=== PATIENT | female | born 1960 | race Caucasian/White ===

== ENCOUNTER → 2016-11-16 | Outpatient (CLI) | payer OTHER ==
[~2016-11-16] MED LIST: ALTOPREV40 MG PO; ASPIRIN EC81 M1 PO; ASPIRIN81 MG; ATACAND4 MG; ATACAND4 MG PO; B-121000 MC1; BUPROPION HCL150 M1 PO; CALCITRIOL0.5 MCG PO; CARAFATE1 GM PO; CIPRO PO; CYANOCOBALAM1000 MCG PO; FERREX 150 FOR1 EACH PO; FLONASE 0.05% N16 G1; FLONASE 0.05% N16 GM; FLONASE ALLERG9.9 ML; HEARTBURN RELIE75 M2; LEVOXYL125 MCG PO; LIDODERM30 EA TOP; LO-DOSE ASPIRIN81 M1 PO; LOVASTATIN20 MG PO; MEVACOR PO; PANTOPRAZOLE SO40 MG PO; PATIENT'S PHARMACY; PHENADOZ12.5 MG PR; PROTONIX PO; REGLAN10 MG PO; SOD BICARBONATE PO; SYNTHROID112 MCG PO; SYNTHROID125 PO; TAGAMET PO; VITAMIN D31000 UNI1; VITAMIN D31000 UNIT PO; WELLBUTRIN SR PO; WELLBUTRIN100 MG PO; ZANTAC150 MG PO; ZOFRAN PO; ZOLOFT PO; ZOLOFT100 MG PO; ZYRTEC; ZYRTEC10 M1 PO; ZYRTEC10 M2 PO
[2016-11-16 12:46] LABS: HEMATOCRIT 39.6 % (35.0-45.0); HEMOGLOBIN 13.2 gm/dL (12.0-16.0); MEAN CELL VOLUME 89.6 FL (83-96); MEAN CORPUSCULAR HEMOGLOBIN 29.9 PG (28-34); MEAN CORPUSCULAR HGB CONC 33.4 g/dL (30-36); MEAN PLATELET VOLUME 8.4 FL (6.5-11.5); RED BLOOD COUNT 4.42 X10e (3.90-5.30); RED CELL DISTRIBUTION WIDTH 13.7 % (11.0-15.5); WHITE BLOOD COUNT 6.4 X10e3 (4.0-10.5)
[2016-11-16 12:59] LABS: BUN/CREATININE RATIO 13.33; CALCIUM SERUM 8.4 mg/dL (8.4-10.2); CREATININE SERUM 1.8 mg/dL (0.6-1.4); GLOM FILT RATE Estimated 30.5 mL/min (>60); PHOSPHOROUS 3.5 mg/dL (2.5-4.6); POTASSIUM 4.3 mmol/L (3.5-5.1)
== END | disposition home or self-care (01) ==
LOC: SLAB 12:25
PROVIDERS: Internal Medicine Nephrology
DX: N18.3 Chronic kidney disease, stage 3 (moderate) (principal); N25.81 Secondary hyperparathyroidism of renal origin; E55.9 Vitamin D deficiency, unspecified
CPT/HCPCS: 36415; 80048; 82310; 82728; 83540; 83550; 83970; 84100; 85027

== ENCOUNTER 2017-01-08 12:38 | Emergency (ER) | payer OTHER ==
[~2017-01-08] VITALS: Ht 170.2 cm; Wt 77.1 kg
--- NOTE | ~2017-01-08 | CT4 ---
[facility] A Service of [facility] & [facility] RADIOLOGY TEXT RESULTS PATIENT: ELZA BENITO LOCATION: SED : 56 UNIT #: [id number] AGE: [address]: Adeline Graham MD SEX: F ORDER DR: [id number] [address] [address] [id number] MR#: [id number] Acc #: [id number] NAME: ELZA BENITO : 1960 SEX: F STUDY DATE/TIME: 01/08/2017 14:10 UNIT: SED ROOM: STUDY DESCRIPTION: CT Abd and Pelv Wo Cont Attending Physician: Adeline Graham M.D. Ordering Physician: Adeline Graham M.D. Primary Care Physician: No Primary Care Physician MEDICAL IMAGING REPORT This report is preliminary unless electronic signature is present. EXAM CT abdomen and pelvis without IV contrast COMPARISON November 28, [address] of the chest dated November 11, 2015 and September 13, 2014. INDICATION 56-year-old female with nausea for [address] imaging of the abdomen and pelvis was performed without IV contrast. Coronal and sagittal reformats were constructed. Lack of IV contrast limits evaluation of adenopathy, vasculature and viscera. This CT exam was performed with one or more of the following radiation dose reduction techniques: automatic control, adjustment of mA and/or kV according to patient size, and iterative reconstruction. As compared to November 28, 2015 there are new healing fractures of the left fifth and sixth anterior ribs. There is multilevel degenerative facet disease of the lumbar spine, which is moderate in the mid to lower aspect. No acute fractures or suspicious osseous lesions. Dependent subsegmental atelectasis in both lower lobes. There are 2 low-density lesions in the liver and likely a third low density lesion and possibly a fourth low-density lesion which are too small to characterize. Otherwise there are simple cysts seen throughout the liver, largest of which measures up to 3.7 cm. Two of the subcentimeter lesions appear stable from comparison of November 2015 and two of them may be new. There is grossly stable polycystic appearance of both kidneys. There are some hyperdense lesions in both kidneys most in keeping with hemorrhagic cysts. There is a thin mural calcification associated with a cyst in the superior pole of the left kidney, which is stable. [facility] A Service of [facility] & [facility] RADIOLOGY TEXT RESULTS PATIENT: ELZA BENITO LOCATION: [facility] : 56 UNIT #: [id number] AGE: [address]: Adeline Graham MD SEX: F ORDER DR: There appears to be some vague calcification inferior pole of the left kidney as well, not well characterized due to lack of IV contrast. This may involve the wall of another simple cyst which is favored. Adrenal glands are unremarkable. There are calcified granulomas within the liver and spleen. No evidence of acute pancreatitis. No hydronephrosis or hydroureter. No ureteral calculi. Urinary bladder is unremarkable. No adnexal masses. Trace amount of free fluid in the right pelvis of uncertain etiology, possibly physiologic. There is a moderate diffuse colonic stool burden with internal hyperdense material. The appendix is not seen in keeping with given history of appendectomy. There has been prior cholecystectomy. There is diffuse calcification of the abdominal aorta extending to the iliac arteries in the left common femoral artery as well as the right common femoral artery. There is calcification near the origin of the celiac artery. No evidence of bowel obstruction or perforation. There is marked distension of the stomach with internal debris. No visible adenopathy. IMPRESSION 1. No acute abnormality of the abdomen, pelvis or imaged lower chest. Since November 2015 there are healing fractures of the fifth and sixth left anterior ribs. 2. Findings consistent with polycystic kidney disease. There are 2 Bosniak type 2 cysts in the left kidney with suggestion of stable thin peripheral rim calcification. There are also hyperdense renal lesions, most in keeping with hemorrhagic cysts. Consider continued imaging followup with IV contrast if the patient can receive iodinated contrast. Otherwise MRI with IV contrast using DOTAREM could be performed which is considered safe in renal failure. One could also consider follow up with ultrasound. 3. Multiple hepatic cysts. There are a few low density lesions which are too small to characterize in the liver and some which may be new from November 28, 2015. 4. Marked distension of the stomach with internal ingested debris. 5. Trace free fluid in the pelvis of uncertain etiology, unexpected in a postmenopausal patient. 6. Arterial calcifications in the abdomen and pelvis with calcification involving the origin of the celiac artery. 7. Prior appendectomy and hysterectomy. Dictated by... Chris Navarro M.D. THIS IS AN ELECTRONICALLY VERIFIED REPORT Chris Navarro M.D. at 01/16/2017 6:20 PM ARTURO/rnr [facility]. [facility] A Service of [facility] RADIOLOGY TEXT RESULTS PATIENT: ELZA BENITO LOCATION: SED : 56 UNIT #: [id number] AGE: [address]: Adeline Graham MD SEX: F ORDER DR: TD: 01/09/2017 02:04 JOB #: [id number] MEDICAL IMAGING REPORT Page 1 of 1
[~2017-01-08 12:38] MED LIST changes: -ALTOPREV40 MG PO; -ASPIRIN EC81 M1 PO; -ATACAND4 MG PO; -CALCITRIOL0.5 MCG PO; -CARAFATE1 GM PO; -CYANOCOBALAM1000 MCG PO; -FERREX 150 FOR1 EACH PO; -FLONASE 0.05% N16 G1; -FLONASE 0.05% N16 GM; -FLONASE ALLERG9.9 ML; -LEVOXYL125 MCG PO; -LO-DOSE ASPIRIN81 M1 PO; -MEVACOR PO; -PANTOPRAZOLE SO40 MG PO; -PATIENT'S PHARMACY; -PHENADOZ12.5 MG PR; -PROTONIX PO; -REGLAN10 MG PO; -SOD BICARBONATE PO; -SYNTHROID125 PO; -TAGAMET PO; -VITAMIN D31000 UNIT PO; -WELLBUTRIN100 MG PO; -ZANTAC150 MG PO; -ZOFRAN PO; -ZOLOFT PO; -ZYRTEC; -ZYRTEC10 M1 PO; -ZYRTEC10 M2 PO
[2017-01-08] MEDS ORDERED: ZYRTEC (12:49)
[2017-01-08] MEDS ORDERED: FLONASE 0.05% N16 G1 (12:49)
[2017-01-08 13:28] LABS: BASOPHIL# 0.1 X10e3 (0-0.3); BASOPHIL% 0.7 % (0-2.5); EOSINOPHIL# 0.7 X10e3 (0-0.7); EOSINOPHIL% 6.7 % (0.0-7.0); HEMATOCRIT 39.1 % (35.0-45.0); HEMOGLOBIN 13.3 gm/dL (12.0-16.0); LYMPHOCYTE# 1.5 X10e3 (1.0-3.5); LYMPHOCYTE% 14.6 % (17.0-45.0); MEAN CELL VOLUME 88.4 FL (83-96); MEAN CORPUSCULAR HEMOGLOBIN 30.2 PG (28-34); MEAN CORPUSCULAR HGB CONC 34.1 g/dL (30-36); MEAN PLATELET VOLUME 8.7 FL (6.5-11.5); MONOCYTE# 0.5 X10e3 (0-1.0); MONOCYTE% 5.1 % (3.0-12.0); NEUTROPHIL# 7.7 X10e3 (1.5-7.1); NEUTROPHIL% 72.9 % (40-75); PLATELET COUNT 215 X10e3 (140-420); RED BLOOD COUNT 4.42 X10e (3.90-5.30); RED CELL DISTRIBUTION WIDTH 13.4 % (11.0-15.5); WHITE BLOOD COUNT 10.5 X10e3 (4.0-10.5)
[2017-01-08 13:29] LABS: DIFF IND NO
[2017-01-08 13:46] LABS: ALBUMIN SERUM 3.5 g/dL (3.5-5.0); BILIRUBIN, DIRECT 0.1 mg/dL (0.0-0.2); BILIRUBIN,TOTAL 0.1 mg/dL (0.2-2.0); CALCIUM SERUM 8.4 mg/dL (8.4-10.2); CREATININE SERUM 1.5 mg/dL (0.6-1.4); POTASSIUM 3.8 mmol/L (3.5-5.1); PROTEIN TOTAL SERUM 6.5 g/dL (6.0-8.3)
[2017-01-13] MEDS ORDERED: ATACAND4 MG PO (13:11)
[2017-01-13] MEDS ORDERED: LO-DOSE ASPIRIN81 M1 PO (13:11)
[2017-01-13] MEDS ORDERED: WELLBUTRIN100 MG PO (13:12)
[2017-01-13] MEDS ORDERED: FLONASE 0.05% N16 GM (13:12)
[2017-01-13] MEDS ORDERED: MEVACOR PO (13:13)
[2017-01-13] MEDS ORDERED: PANTOPRAZOLE SO40 MG PO (13:13)
[2017-01-13] MEDS ORDERED: ZOLOFT PO (13:13)
[2017-01-13] MEDS ORDERED: LEVOXYL125 MCG PO (13:13)
[2017-01-13] MEDS ORDERED: ZYRTEC10 M1 PO (13:14)
[2017-01-13] MEDS ORDERED: CARAFATE1 GM PO (13:15)
[2017-01-13] MEDS ORDERED: TAGAMET PO (13:15)
[2017-01-13] MEDS ORDERED: ZANTAC150 MG PO (13:16)
== END 2017-01-08 15:19 | disposition home or self-care (01) ==
LOC: SED 12:38
PROVIDERS: Student in an Organized Health Care Education/Training Program
DX: K21.9 Gastro-esophageal reflux disease without esophagitis (principal); E11.9 Type 2 diabetes mellitus without complications; I10 Essential (primary) hypertension; F17.200 Nicotine dependence, unspecified, uncomplicated; Z88.2 Allergy status to sulfonamides; Z88.0 Allergy status to penicillin; Z88.8 Allergy status to other drugs, medicaments and biological substances; Z79.899 Other long term (current) drug therapy
CPT/HCPCS: 36415; 74176; 80048; 80076; 82150; 83690; 85025; 99284

== ENCOUNTER → 2017-01-14 | Day surgery (SDC) | payer OTHER ==
[~2017-01-14] MED LIST changes: +ALTOPREV40 MG PO; +ASPIRIN EC81 M1 PO; +ATACAND4 MG PO; +CALCITRIOL0.5 MCG PO; +CARAFATE1 GM PO; +CYANOCOBALAM1000 MCG PO; +FERREX 150 FOR1 EACH PO; +FLONASE 0.05% N16 G1; +FLONASE 0.05% N16 GM; +FLONASE ALLERG9.9 ML; +LEVOXYL125 MCG PO; +LO-DOSE ASPIRIN81 M1 PO; +MEVACOR PO; +PANTOPRAZOLE SO40 MG PO; +PATIENT'S PHARMACY; +PHENADOZ12.5 MG PR; +PROTONIX PO; +REGLAN10 MG PO; +SOD BICARBONATE PO; +SYNTHROID125 PO; +TAGAMET PO; +VITAMIN D31000 UNIT PO; +WELLBUTRIN100 MG PO; +ZANTAC150 MG PO; +ZOFRAN PO; +ZOLOFT PO; +ZYRTEC; +ZYRTEC10 M1 PO; +ZYRTEC10 M2 PO
--- NOTE | ~2017-01-14 | OR ---
Unit #: [id number] #: [id number] Patient: ELZA BENITO [id number] [address] [address] [id number] O MR#: [id number] NAME: ELZA BENITO ROOM: Date of Procedure: 01/14/2017 Admission Date: 01/14/2017 Surgeon: Jose Guadalupe Hernandez M.D. : 1960 Attending Physician: Jose Guadalupe Hernandez M.D. Referring Physician: Jose Guadalupe Hernandez M.D. Primary Care Physician: Monica Briones M.D. OPERATIVE REPORT JOB NOTE: CC: PRIMARY CARE PHYSICIAN, AND DR. WILLS. PROCEDURE PERFORMED Esophagogastroduodenoscopy with biopsy. INDICATIONS FOR PROCEDURE The patient with persistent nausea and vomiting, also with gastroesophageal reflux disease symptoms, undergoing evaluation with upper endoscopy. MEDICATIONS Monitored anesthesia. POSTOPERATIVE FINDINGS 1. Large antral mass with superficial ulceration in a large area. Multiple biopsies were taken from the edges of the ulceration. 2. Pyloric canal was deformed and obstructed, because of the mass effect from the tumor; however, duodenal bulb and distal duodenum were normal. 3. Small hiatal hernia. PLAN We will follow up on the pathology report. Further recommendations to follow. DESCRIPTION OF PROCEDURE The patient was explained of the procedure, risks, and benefits along with risks and benefits of anesthesia. She was brought to the endoscopy room. Propofol anesthesia was given. Bite block was placed. The scope was passed down the mouth into esophagus, stomach, duodenum, and distal duodenum. Findings as described. Biopsies were taken. Gently, I pulled the scope out of the patient's mouth. She tolerated it well. Dictated by... Misa Casey/juan m TD: 01/20/2017 11:49 JOB #: [id number] Unit #: [id number] #: [id number] Patient: ELZA BENITO OPERATIVE REPORT Page 1 of 1 X Jose Guadalupe Hernandez MD X PROCEDURE OPERATIVE NOTE
== END | disposition home or self-care (01) ==
LOC: COPS 10:17
DX: K29.50 Unspecified chronic gastritis without bleeding (principal); K44.9 Diaphragmatic hernia without obstruction or gangrene; M81.0 Age-related osteoporosis without current pathological fracture; E03.9 Hypothyroidism, unspecified; E11.9 Type 2 diabetes mellitus without complications; J44.9 Chronic obstructive pulmonary disease, unspecified; I10 Essential (primary) hypertension; F17.210 Nicotine dependence, cigarettes, uncomplicated; Z88.0 Allergy status to penicillin; Z88.2 Allergy status to sulfonamides; Z88.5 Allergy status to narcotic agent; Z88.8 Allergy status to other drugs, medicaments and biological substances; Z79.82 Long term (current) use of aspirin; Z79.899 Other long term (current) drug therapy; Z90.49 Acquired absence of other specified parts of digestive tract; Z98.890 Other specified postprocedural states
CPT/HCPCS: 82947; 88305; 88312; 88313; J2250

== ENCOUNTER 2017-01-20 11:27 | Inpatient (IN) | payer OTHER ==
[~2017-01-20] VITALS: Ht 170.2 cm; Wt 76.7 kg
--- NOTE | ~2017-01-20 | HP ---
Unit #: [id number] #: [id number] Patient: ELZA BENITO [id number] [address] [place], [place] [address] [id number] I MR#: [id number] NAME: ELZA BENITO ROOM: 477 Age: 56 Sex: F Admission Date: 01/20/2017 : 1960 Attending Physician: Jose Guadalupe Hernandez M.D. Primary Care Physician: Monica Briones M.D. HISTORY AND PHYSICAL REASON FOR ADMISSION History of nausea and vomiting, unable to tolerate anything by mouth, gastric mass. HISTORY OF PRESENTING ILLNESS Miss Benito is a 56-year-old, thin, pleasant female. She was seen here by me within the last week where an EGD has shown a large gastric antral mass with ulceration which was causing deformity and complete obstruction of gastric outlet. The patient was sent home on clear liquids however could not tolerate any liquids at all and was brought in for persistent nausea/vomiting. Biopsies from the original mass taken were negative. She needs further tissue diagnosis also. She has lost about 20 pounds. She has no hematemesis. She has no change in the bowel movements. PAST MEDICAL HISTORY Past medical history significant for hyperlipidemia, polycystic kidney disease, history of anxiety and depression. She is status post cholecystectomy, C-sections. SOCIAL HISTORY Smoker, denies alcohol, denies any drug abuse. REVIEW OF SYSTEMS Complete 10-point review of systems was done which was unremarkable other than as mentioned above. HOME MEDICATIONS Medications at home included aspirin, Wellbutrin, Flonase, Levoxyl, Mevacor, pantoprazole, Zoloft, Zyrtec, Seroquel and Zantac. ALLERGIES Allergies to Dilaudid, Lortab and sulfa. PHYSICAL EXAMINATION VITAL SIGNS: Are stable. Temperature 97.9. Pulse is 93. Respirations 18. Blood pressure 123/51. HEENT: Pupils equal and reactive. Sclerae anicteric. Oral mucosa moist. NECK: No JVD. No lymphadenopathy. CHEST: Clear to auscultation bilaterally. CARDIOVASCULAR SYSTEM: Regular rate/rhythm. No murmurs. ABDOMEN: Soft, nontender, nondistended. No organomegaly or ascites. EXTREMITIES: Without clubbing, cyanosis or edema. NEUROLOGICALLY: Grossly intact. No focal sensory or motor deficits. Unit #: [id number] #: [id number] Patient: ELAZ BENITO Cranial nerves are intact. SKIN: Is warm and dry. DIAGNOSTIC STUDIES LABS: At admission she has normal BUN and creatinine, sodium was 133, potassium of 3.0. LFTs are normal. saturation of 13, iron level of 30, and ferritin of 67, B12 was over 1500. CBC with a normal hemoglobin and hematocrit, platelet count ASSESSMENT AND PLAN 1. Patient with gastric outlet obstruction and persistent nausea and vomiting, large gastric mass that appears to be neoplastic however biopsies were negative. Will continue with IV fluids as well as nutrition. Will continue with PPI therapy. She will need a repeat upper endoscopy for temporary placement of nasojejunal feeding tube as well as for repeat biopsies. If the biopsies are negative again and deep repeat biopsies will be considered at a later date. 2. DVT prophylaxis with Lovenox. 3. History of diabetes mellitus. Will watch Accu-Cheks q.a.c. and q.h.s. Dictated by Jose Guadalupe Hernandez M.D. LYNNE/melanie TD: 01/21/2017 21:46 JOB #: [id number] HISTORY AND PHYSICAL Page 1 of 1 X Jose Guadalupe Hernandez MD X HISTORY AND PHYSICAL
--- NOTE | ~2017-01-20 | CO ---
Unit #: [id number] #: [id number] Patient: ELZA BENITO [id number] [address] [place], [place] [address] [id number] I MR#: [id number] NAME: ELZA BENITO ROOM: 47 Age: 56 Sex: F Admission Date: 01/20/2017 : 1960 Attending Physician: Jose Guadalupe Hernandez M.D. Primary Care Physician: Monica Briones M.D. Consultation Date: 01/23/2017 CONSULTATION REPORT REASON FOR CONSULTATION Medical management. HISTORY OF PRESENT ILLNESS A 56-year-old female with multiple medical problems, was admitted by Dr. Hernandez because of intractable nausea and vomiting. The patient had EGD done, which showed a large gastric antral mass with ulceration which was causing deformity and complete obstruction of the gastric outlet. After EGD, the patient was sent home on clear liquid but she could not tolerate, was admitted and has NG tube in at this time. She has been examined and she was seen in room 477. She seems to be stable, lying down comfortably in the bed, in no respiratory distress. She does not have any major complaint at this time. She does not complain of chest pain. She does have some abdominal pain on the left upper quadrant. No vomiting since she has had NG tube in place. No complain of constipation or diarrhea. No complain of syncopal episode. PAST MEDICAL HISTORY 1. Hypertension. 2. Hyperlipidemia. 3. History of polycystic kidney disease. 4. History of diabetes mellitus, type 2, diet controlled. 5. Hypothyroidism. 6. History of depression/anxiety. 7. History of squamous cell skin cancer. 8. History of tobacco abuse. PAST SURGICAL HISTORY 1. Cholecystectomy. 2. Appendectomy. 3. Multiple foot surgeries. SOCIAL HISTORY The patient lives at home with her friend. She has a history of smoking. She started smoking at the age of 12, smokes half to one pack per day. No history of alcohol abuse or drug abuse. ALLERGIES The patient is allergic to Dilaudid, Lortab, and sulfa. MEDICATIONS Medications at this time; Lovenox 40 mg subcu daily, Protonix IV 40 daily, Flonase nasal spray b.i.d., Wellbutrin 100 mg b.i.d., Zoloft 100 mg daily, aspirin 81 mg daily, Synthroid 125 mcg daily, IV fluids D5 normal saline Unit #: [id number] #: [id number] Patient: ELZA BENITO at 75 mL an hour, IV morphine as needed, and potassium protocol. REVIEW OF SYSTEMS No history of fever, chills, or rigors. No history of significant weight loss. She does have nausea and vomiting. No history of syncopal episode. The patient has had squamous cell carcinoma of the skin. She has history of depression, but under control. Rest is as per history of presenting illness. PHYSICAL EXAMINATION VITAL SIGNS: Stable. Blood pressure 116/54, respiratory rate 18, pulse is 65, temperature 97.7, oxygen saturation is 100%. HEAD: Head is normocephalic. Eye movements are normal. No conjunctival congestion. NECK: Supple. Trachea is in midline. No carotid bruit. CHEST: Fair air entry. Bilateral few wheezing heard. CVS: S1 and S2 positive. Regular rhythm. ABDOMEN: Soft. Mild tenderness in the left upper quadrant. EXTREMITIES: Negative edema. Pulses are palpable. BUTTER MELTER: The patient is awake, alert, oriented x3. No focal neurological deficit. DIAGNOSTIC STUDIES LABORATORY RESULTS: Today potassium 3.9, sodium 137, BUN 11, creatinine 1.0. Liver enzymes are stable. Magnesium 2.0. WBC 5.2, hemoglobin 12.9, hematocrit 38.0, and platelet count of 170. B12 more than 1500 and ferritin 67. ASSESSMENT AND PLAN 1. Gastric outlet obstruction. 2. Persistent nausea and vomiting secondary to above. 3. Large gastric mass with biopsies which are negative so far. 4. History of diabetes mellitus, type 2. 5. Hypothyroidism. 6. Hypertension. 7. Hyperlipidemia. 8. History of polycystic kidney disease. 9. History of depression. 10. Tobacco abuse. 11. History of skin cancer. PLAN 1. Med rec has been reviewed at length. Continue IV Protonix 40 mg daily. Continue NG tube at this time and feedings will be started. The patient will need repeat esophagogastroduodenoscopy. Continue Accu-Chek a.c. and h.s. with insulin sliding scale. Home medications have been reviewed and seems to be stable at this time. Nicotine patch is being placed. 2. Tobacco cessation counseling has been done. The patient is on DVT prophylaxis. 3. Plan of care has been discussed with patient at length. Thank you, Dr. Hernandez, for this medical consult on a very pleasant female. We will continue to follow along with you. Dictated by.Massiel Buckner M.D. Unit #: [id number] #: [id number] Patient: ELZA BENITO SIMI/juan m TD: 01/23/2017 04:24 JOB #: [id number] CONSULTATION REPORT Page 1 of 1 X Vanessa Buckner MD X CONSULTATION REPORT
--- NOTE | ~2017-01-20 | CO ---
Unit #: [id number] #: [id number] Patient: ELZA BENITO [id number] [address] [place], [place] [address] [id number] I MR#: [id number] NAME: ELZA BENITO ROOM: 47 Age: 56 Sex: F Admission Date: 01/20/2017 : 1960 Attending Physician: Jose Guadalupe Hernandez M.D. Primary Care Physician: Monica Briones M.D. Consultation Date: 01/21/2017 CONSULTATION REPORT REASON FOR CONSULTATION Hypoglycemia. HISTORY OF PRESENT ILLNESS This is a 56-year-old female, who has recently been diagnosed with the stomach mass, who presented to the emergency room for not feeling well, intractable nausea, vomiting, unable to eat anything p.o., weight loss about 2 weeks duration. She has been having recurrent episodes of hypoglycemia. The patient does have a history of the type 2 diabetes mellitus, which is diet controlled in the past. She has not been on any oral hypoglycemic agents. She underwent EGD. She had Dobbhoff tube placement. She is started on tube feeds and IV fluids with dextrose. Her blood sugar has been stable at this time. PAST MEDICAL HISTORY Type 2 diabetes mellitus, hyperlipidemia, hypertension, chronic kidney disease, stomach mass, questionable gastric cancer. PAST SURGICAL HISTORY Appendectomy, cholecystectomy. ALLERGIES Reviewed. MEDICATIONS Current medications and home medications list reviewed. SOCIAL HISTORY Continues to smoke tobacco. REVIEW OF SYSTEMS 10-point review of systems completed, please see HPI. PHYSICAL EXAMINATION GENERAL: She looks comfortable, no acute distress. VITAL SIGNS: Temperature 98.4, pulse 62, respirations 16, and blood pressure 123/49. HEENT: EOMI. Pupils equally reactive to light. NECK: Supple. No thyromegaly noted. CHEST: Good air entry. CVS: Regular rhythm. No murmurs. ABDOMEN: Soft and nontender. Bowel sounds positive. EXTREMITIES: No edema. Unit #: [id number] #: [id number] Patient: ELZA BENITO NEUROLOGIC: Nonfocal. DIAGNOSTIC STUDIES LABORATORY RESULTS: Reviewed. ASSESSMENT 1. Hypoglycemia, recurrent most likely due to the poor p.o. intake due to the gastric mass and weight loss. 2. History of type 2 diabetes mellitus. PLAN We will continue IV fluids with the dextrose. Continue tube feeds. Continue monitoring blood sugars. Check serum cortisol level to rule out any underlying adrenal insufficiency. Thanks again for consultation. Dictated by... Misa Cherry/juan m TD: 01/21/2017 19:16 JOB #: [id number] CONSULTATION REPORT Page 1 of 1 X Ty Villalobos MD X CONSULTATION REPORT
--- NOTE | ~2017-01-20 | A ---
[facility] DATE: 01/21/17 Patient: ELZA DAVIES JIGNA Physician: ALEKSANDER Address: [address] Room/Bed: [address] [place] [address], Zip: [place] [address] Admit Date: 01/20/17 Date of : [birth year] Height: 5 7 Weight: 169 76.65 NUTRITIONAL ASSESSMENT: REASON: Enteral nutrition recommendation consult Admitting dx: Pt is a 56 y/o female admitted with GERD symptoms and N/V PMH: Pt is s/p EGD on 01/14/17. Anthropometrics: Ht:67" Wt:168# (76 kg) BMI:26.3 UBW:180# 7% weight loss since beginning of 2017. Labs: Na+:133, K+:3.0, Ca++:8.1, Alb:3.4, POC:50-128, Lip:67, GFR:45.2 Meds: Synthroid (JT), Aspirin, Phenergan, Protonix, Lovenox I/O & Bowel function: BM 01/18 Skin Integrity: Nothing noted. Estimated Nutrition Needs: 2600-3076 kcals (20-25 g/kg) 76-91 g protein (1.0-1.2 g/kg) Fluids consistent with kcal needs or per MD. Assessment: Chart reviewed, events noted. RD was consulted to provide enteral nutrition recommendations. Cross Country/Track And Field Coach was able to speak to the pt and family in room. Pt currently has EN support of Jevity 1.2 running @ 30 ml/hr. Of note, pt's tube feed was initiated just minutes prior to internal consultant entering room; no pump history is available. Pt reports her usual body weight to be ~180# prior to the beginning of this year, faulting poor appetite due to N/V and gastric issues for her weight loss. Of note, patient has an [place] tube in place. RD to follow-up with patient per protocol. Dx: Inadequate protein-energy intake r/t N/V, current clinical condition AEB need for enteral nutrition, 7% weight loss this year. Intervention: See RD recs below Monitoring, Evaluation and Goals: 1. Enteral nutrition to provide >80% estimated goal volume x 24 hours. 2. Prevent further unintended weight loss. 3. Labs WNL. (Na+, K+, Ca++, Alb, Lip, GFR) [facility] DATE: 01/21/17 Patient: ELZA DAVIES JIGNA Physician: ALEKSANDER Address: [address] Room/Bed: [address] [place] [address], Zip: [place] [address] Admit Date: 01/20/17 Date of : 56 Height: 5 7 Weight: 169 76.65 Recommendations: 1. Once medically feasible, advance diet per PHYSICIAN PRESIDENT as tolerated + regular. 2. Tube feeds held 2 hours before and 2 hours after administering Synthroid - rate is based on a 20 hour period If pt remains inappropriate for PO diet initiate enteral nutrition with Jevity 1.5 @ 20 ml/hr and advance by 10 ml q 4 hours until a goal rate of 60 ml/hr (x20 hours) is reached to provide 1200 ml, 1800 kcal, 77 g protein, and 912 ml free H2O. Once at goal rate add free water flushes of 220 ml q 6 hours and hold liquid IVF, or manage fluids per MD. If synthroid d/c'd initiate Jevity 1.5 @ 50 ml/hr (x24 hours) to provide 1200 ml, 1800 kcal, 77 g protein, and 912 ml free H2O. Once at goal rate add free water flushes of 220 ml q 6 hours and hold liquid IVF, or manage fluids per MD. 3. Continue to monitor blood glucose levels. Pt is a mild-moderate nutrition risk RD will follow Respectfully, Ivette Adan, Smutter Khris Dick, MS, RD, LD [facility] cc: client file
--- NOTE | ~2017-01-20 | OR ---
Unit #: [id number] #: [id number] Patient: ELZA BENITO [id number] [address] [place], [place] [address] [id number] Kimberlee MR#: [id number] NAME: ELZA BENITO ROOM: 477 Date of Procedure: 01/21/2017 Admission Date: 01/20/2017 Surgeon: Jose Guadalupe Hernandez M.D. : 1960 Attending Physician: Jose Guadalupe Hernandez M.D. Primary Care Physician: Monica Briones M.D. OPERATIVE REPORT PROCEDURE PERFORMED Esophagogastroduodenoscopy with biopsies and esophagogastroduodenoscopy with nasojejunal feeding tube placement. INDICATIONS FOR PROCEDURE A 56-year-old female with gastric antral mass causing gastric outlet obstruction, here fore repeat evaluations, biopsies as well as placement of nasojejunal feeding tube. MEDICATIONS Monitored anesthesia. POSTOPERATIVE FINDINGS 1. Large antral mass about 4 to 5 cm, ulceration. Multiple biopsies were taken from the ulcer edges as well as from the base of the ulceration. 2. Successful placement of nasojejunal feeding tube using nasoscope under fluoroscopic guidance. PLAN Will start feeding through the nasojejunal feeding tube. We will await biopsy results. DESCRIPTION OF PROCEDURE The patient was explained of the procedure risks and benefits along with risks and benefits of anesthesia. She was brought to the endoscopy room. Propofol anesthesia was given. Bite block was placed. The scope was passed down the mouth into esophagus, stomach, duodenum, and distal duodenum. Antral mass deforming the . Multiple biopsies taken from the base of the ulcer as well as edges. I then used nasojejunal scope, which was passed down the right nostril all the way to the descending duodenum. Guidewire was passed through it and placed in the naris under fluoroscopic guidance, we pulled the scope out. A nasojejunal feeding tube was then placed over the guidewire and secured in position on the nose. Placement was confirmed with fluoroscopy. She tolerated the procedure very well. No major complications were seen. Dictated by... Misa Casey/juan m Unit #: [id number] #: [id number] Patient: ELZA BENITO TD: 01/21/2017 16:58 JOB #: [id number] OPERATIVE REPORT Page 1 of 1 X Jose Guadalupe Hernandez MD PROCEDURE OPERATIVE NOTE
--- NOTE | ~2017-01-20 | CT57 ---
[facility] A Service of [facility] RADIOLOGY TEXT RESULTS PATIENT: ELZA BENITO LOCATION: [facility] [id number] : 56 UNIT #: [id number] AGE: [address]: Jose Guadalupe Hernandez MD SEX: F ORDER DR: [id number] [facility] [address] [place], [place] [address] [id number] I MR#: [id number] Acc #: [id number] NAME: ELZA BENITO : 1960 SEX: F STUDY DATE/TIME: 01/24/2017 17:45 UNIT: [facility] ROOM: [facility] STUDY DESCRIPTION: CT Chest Wo Cont Attending Physician: Jose Guadalupe Hernandez M.D. Ordering Physician: Henna Aguirre M.D. Primary Care Physician: Monica Briones M.D. MEDICAL IMAGING REPORT This report is preliminary unless electronic signature is present EXAM Chest CT 01/24 INDICATIONS Vomiting for 2 weeks with chest discomfort. History of adenocarcinoma of the stomach. Observation for malignant neoplasm. TECHNIQUE Axial noncontrast images were obtained through the chest. Multiplanar reformats were obtained. Comparison made with 11/11/2015. The CT exam was performed with one or more of the following radiation dose reduction techniques: automatic exposure control, adjustment of mA and/or kV according to patient size, and iterative reconstruction. FINDINGS There are a few small mediastinal nodes which are unchanged from prior and benign. No pathologic adenopathy is seen. No pericardial effusion. There are trace bilateral pleural effusions. Lung windows demonstrate emphysema. Minimal atelectasis noted left lower lobe. No acute infiltrates are seen, and there are no suspicious pulmonary nodules. Upper abdomen again shows polycystic kidney disease. There are multiple hepatic cysts. Redemonstrated is a soft tissue mass in the distal gastric body. This is compatible with the given history of adenocarcinoma. The tip of the feeding tube is not seen. The distal most portion is in the first portion of the duodenum. No suspicious osseous lesions are identified. IMPRESSION 1. No evidence of metastatic disease in the chest. 2. Emphysema with trace bilateral pleural effusions. 3. Mass in the distal gastric body compatible with given history of STS. [facility] A Service of [facility] RADIOLOGY TEXT RESULTS PATIENT: ELZA BENITO LOCATION: [facility] [id number] : 56 UNIT #: [id number] AGE: [address]: Jose Guadalupe Hernandez MD SEX: F ORDER DR: adenocarcinoma. Dictated by... Francis Williamson Jr., M.D. THIS IS AN ELECTRONICALLY VERIFIED REPORT Francis Williamson Jr., M.D. at 01/26/2017 2:08 PM FOUZIA/sharri TD: 01/25/2017 09:37 JOB #: [id number] MEDICAL IMAGING REPORT Page 1 of 1 COPY
--- NOTE | ~2017-01-20 | CO ---
Unit #: [id number] #: [id number] Patient: ELZA BENITO [id number] [address] [place], [place] [address] [id number] I MR#: [id number] NAME: ELZA BENITO ROOM: 477 Age: 56 Sex: F Admission Date: 01/20/2017 : 1960 Attending Physician: Jose Guadalupe Hernandez M.D. Primary Care Physician: Monica Briones M.D. CONSULTATION REPORT CHIEF COMPLAINT Gastric/esophageal cancer, weight loss, polycystic kidney disease, cyst in the liver. HISTORY OF PRESENT ILLNESS This is a 56-year-old female, who developed heartburn about six to eight weeks ago. It gradually worsened. The patient had nausea and vomiting. She has lost about 20 pounds in one year. Patient had a CT of the chest, abdomen, and pelvis. There is a mass close to the antrum. There are multiple cysts in the kidney and the liver. This is known to the patient and the family. She came to hospital because of the nausea, vomiting, unable to keep down anything. She needs a J tube and EGD. REVIEW OF SYSTEMS CONSTITUTIONAL: No fever, no chills, no sweats, no weight loss. EYES: No visual symptoms. EARS, NOSE AND THROAT: There is no runny nose or sore throat or difficulty hearing. CARDIOVASCULAR: No chest pain. No shortness of breath. No palpitations. No orthopnea. No PND. RESPIRATORY: No cough. No wheezing. No hemoptysis. GASTROINTESTINAL: As mentioned above. GENITOURINARY: No urinary frequency, hesitancy or urgency. No blood in the urine. MUSCULOSKELETAL: No muscle or joint pain. NEUROLOGIC: No headache. No numbness or tingling. No weakness. No seizure. PSYCHIATRIC: No anxiety, depression or mood disturbance. ENDOCRINE: No excessive urination or thirst. DERMATOLOGIC: No rash or change in the skin. ALLERGIC/IMMUNOLOGIC: No symptoms. HEMATOLOGIC/LYMPHATIC: Denies any symptoms. PAST MEDICAL HISTORY 1. Polycystic kidney disease. 2. Diabetes. 3. Hypertension. 4. Now possible gastric mass, malignant in nature. ALLERGIES Allergies to multiple medications including Dilaudid, gentamicin, sulfa, penicillin, Lortab. Unit #: [id number] #: [id number] Patient: ELZA BENITO SOCIAL HISTORY The patient has been smoking half pack per day for 40 years. It started at the age of 14. Denies alcohol abuse. She is taking care of one of her handicapped daughters. She does not work. FAMILY HISTORY Sister has lung cancer. PHYSICAL EXAMINATION VITAL SIGNS: Afebrile, pulse 60, respiratory rate 22, O2 saturations on room air 98%, blood pressure 111/56. GENERAL: Patient is comfortable. ECOG is 0. The patient is pleasant. HEENT: Moist mucosa. Pupils equally reactive to light. Extraocular muscles intact. Sclerae anicteric. No obvious bleeding from nasal mucosa or oral mucosa. Scalp normal. Hearing normal. NECK: No JVD. No lymphadenopathy. LYMPHATIC/HEMATOLOGIC: There is no palpable adenopathy in the neck, axilla or inguinal area. CARDIOVASCULAR: S1, S2. Regular rate and rhythm. No S3 or S4. RESPIRATORY: Chest symmetrical, normal. Clear to auscultation bilaterally. No wheezes, no rales, no rhonchi. No dullness to percussion. ABDOMEN/GASTROINTESTINAL: Abdomen is soft, nontender, nondistended. No hepatosplenomegaly. EXTREMITIES: There is no clubbing, no cyanosis, no edema. No varicose veins. NEUROLOGICAL: Patient is alert, awake and oriented x3. Cranial nerves II-XII are intact. Sensory grossly intact. Motor is 4/5 in all four extremities. Gait is normal. Station is normal. Language is normal. Memory is normal. DTRs +2 in all four extremities. MUSCULOSKELETAL: No joint swelling. No bony tenderness. No muscle tenderness. SKIN: No petechiae, no rash, no ecchymosis. PSYCHIATRIC: No anxiety. No delusions or hallucinations. There is no agitation. Eye contact is normal. Affect is appropriate. There is no flight of ideas. DIAGNOSTIC STUDIES LABORATORY: WBC 4.8, hemoglobin 12.3, platelets 179,000. Creatinine is 1.3. IMAGING: CT of the chest, abdomen, and pelvis as mentioned above. ASSESSMENT AND PLAN This is a 56-year-old female with the following active issues: 1. Gastric/esophageal mass: Patient had an EGD. She is going for another EGD. She needs J tube placement. She most likely will be transferred to [facility] for surgery. 2. GI: As mentioned above, she has nausea and vomiting, losing weight. She needs J tube. She needs surgery. At the time of dictation, EGD is done. J tube is placed. Pathology is positive for adenocarcinoma. She is going to [facility] for surgery. I already discussed the case with Dr. Hernandez. I also discussed the case with (1) Richard. Unit #: [id number] #: [id number] Patient: ELZA BENITO Dictated by... Misa Arias/shaunna TD: 01/25/2017 11:26 JOB #: [id number] CONSULTATION REPORT Page 1 of 1 X Henna Aguirre MD X CONSULTATION REPORT
[~2017-01-20 11:27] MED LIST changes: -ALTOPREV40 MG PO; -ASPIRIN EC81 M1 PO; -CALCITRIOL0.5 MCG PO; -CYANOCOBALAM1000 MCG PO; -FERREX 150 FOR1 EACH PO; -FLONASE ALLERG9.9 ML; -PATIENT'S PHARMACY; -PHENADOZ12.5 MG PR; -PROTONIX PO; -REGLAN10 MG PO; -SOD BICARBONATE PO; -SYNTHROID125 PO; -VITAMIN D31000 UNIT PO; -ZOFRAN PO; -ZYRTEC10 M2 PO
[2017-01-20 13:17] LABS: BASOPHIL# 0.1 X10e3 (0-0.3); BASOPHIL% 0.8 % (0-2.5); EOSINOPHIL# 0.6 X10e3 (0-0.7); EOSINOPHIL% 7.5 % (0.0-7.0); HEMATOCRIT 45.3 % (35.0-45.0); HEMOGLOBIN 15.4 gm/dL (12.0-16.0); LYMPHOCYTE% 22.8 % (17.0-45.0); MEAN CORPUSCULAR HGB CONC 34.1 g/dL (30-36); MEAN PLATELET VOLUME 9.3 FL (6.5-11.5); MONOCYTE# 0.6 X10e3 (0-1.0); MONOCYTE% 6.9 % (3.0-12.0); NEUTROPHIL# 5.4 X10e3 (1.5-7.1); PLATELET COUNT 209 X10e3 (140-420); RED BLOOD COUNT 5.14 X10e (3.90-5.30); RED CELL DISTRIBUTION WIDTH 13.6 % (11.0-15.5); WHITE BLOOD COUNT 8.6 X10e3 (4.0-10.5)
[2017-01-20 13:18] LABS: DIFF IND NO
[2017-01-20 14:05] LABS: ALBUMIN SERUM 4.2 g/dL (3.5-5.0); BILIRUBIN, DIRECT 0.1 mg/dL (0.0-0.2); BILIRUBIN,INDIRECT 1.1 mg/dL (0.0-0.9); BILIRUBIN,TOTAL 1.2 mg/dL (0.2-2.0); BUN/CREATININE RATIO 10.62; CALCIUM SERUM 9.3 mg/dL (8.4-10.2); CREATININE SERUM 1.6 mg/dL (0.6-1.4); GLOM FILT RATE Estimated 35.2 mL/min (>60); PROTEIN TOTAL SERUM 8.1 g/dL (6.0-8.3)
[2017-01-20 14:07] LABS: POTASSIUM 3.1 mmol/L (3.5-5.1)
[2017-01-20] MEDS ORDERED: PATIENT'S PHARMACY (15:26)
[2017-01-20] MEDS ORDERED: CALCITRIOL0.5 MCG PO (15:26)
[2017-01-20] MEDS ORDERED: SOD BICARBONATE PO (15:26)
[2017-01-20] MEDS ORDERED: ZOFRAN PO (15:29)
[2017-01-20] MEDS ORDERED: REGLAN10 MG PO (15:29)
[2017-01-20] MEDS ORDERED: PHENADOZ12.5 MG PR (15:29)
[2017-01-20] MEDS ORDERED: ASPIRIN EC81 M1 PO (15:30)
[2017-01-20] MEDS ORDERED: ATACAND4 MG PO (15:30)
[2017-01-20] MEDS ORDERED: WELLBUTRIN100 MG PO (15:31)
[2017-01-20] MEDS ORDERED: FERREX 150 FOR1 EACH PO (15:31)
[2017-01-20] MEDS ORDERED: FLONASE ALLERG9.9 ML (15:31)
[2017-01-20] MEDS ORDERED: PROTONIX PO (15:32)
[2017-01-20] MEDS ORDERED: SYNTHROID125 PO (15:32)
[2017-01-20] MEDS ORDERED: ALTOPREV40 MG PO (15:32)
[2017-01-20] MEDS ORDERED: CYANOCOBALAM1000 MCG PO (15:33)
[2017-01-20] MEDS ORDERED: VITAMIN D31000 UNIT PO (15:33)
[2017-01-20] MEDS ORDERED: ZOLOFT100 MG PO (15:33)
[2017-01-20] MEDS ORDERED: ZYRTEC10 M2 PO (15:33)
[2017-01-21 03:44] LABS: BASOPHIL# 0.1 X10e3 (0-0.3); DIFF IND NO; EOSINOPHIL# 0.7 X10e3 (0-0.7); EOSINOPHIL% 10.6 % (0.0-7.0); HEMATOCRIT 38.5 % (35.0-45.0); HEMOGLOBIN 13.3 gm/dL (12.0-16.0); LYMPHOCYTE# 2.4 X10e3 (1.0-3.5); MEAN CELL VOLUME 87.4 FL (83-96); MEAN CORPUSCULAR HEMOGLOBIN 30.2 PG (28-34); MEAN CORPUSCULAR HGB CONC 34.5 g/dL (30-36); MEAN PLATELET VOLUME 9.5 FL (6.5-11.5); MONOCYTE# 0.4 X10e3 (0-1.0); MONOCYTE% 7.3 % (3.0-12.0); NEUTROPHIL# 2.6 X10e3 (1.5-7.1); NEUTROPHIL% 42.1 % (40-75); PLATELET COUNT 160 X10e3 (140-420); RED BLOOD COUNT 4.41 X10e (3.90-5.30); RED CELL DISTRIBUTION WIDTH 13.5 % (11.0-15.5); WHITE BLOOD COUNT 6.1 X10e3 (4.0-10.5)
[2017-01-21 04:22] LABS: IRON SERUM 30 ug/dL (28-170); TOTAL IRON BINDING CAPACITY 233 ug/dL (269-535); TRANSFERRIN 166 mg/dL (192-382); TRANSFERRIN SATURATION 13 % (20-50)
[2017-01-21 04:31] LABS: ALBUMIN SERUM 3.4 g/dL (3.5-5.0); BILIRUBIN,TOTAL 0.8 mg/dL (0.2-2.0); BUN/CREATININE RATIO 11.53; CALCIUM SERUM 8.1 mg/dL (8.4-10.2); CREATININE SERUM 1.3 mg/dL (0.6-1.4); GLOM FILT RATE Estimated 45.2 mL/min (>60); PROTEIN TOTAL SERUM 6.5 g/dL (6.0-8.3)
[2017-01-21 04:38] LABS: FERRITIN 67 ng/mL (11-307)
[2017-01-22 04:23] LABS: BASOPHIL# 0.1 X10e3 (0-0.3); BASOPHIL% 1.1 % (0-2.5); EOSINOPHIL# 0.8 X10e3 (0-0.7); EOSINOPHIL% 14.4 % (0.0-7.0); HEMOGLOBIN 12.9 gm/dL (12.0-16.0); LYMPHOCYTE% 38.7 % (17.0-45.0); MEAN CELL VOLUME 86.4 FL (83-96); MEAN CORPUSCULAR HEMOGLOBIN 29.5 PG (28-34); MEAN CORPUSCULAR HGB CONC 34.1 g/dL (30-36); MEAN PLATELET VOLUME 9.4 FL (6.5-11.5); MONOCYTE# 0.3 X10e3 (0-1.0); MONOCYTE% 6.3 % (3.0-12.0); NEUTROPHIL# 2.1 X10e3 (1.5-7.1); NEUTROPHIL% 39.5 % (40-75); PLATELET COUNT 170 X10e3 (140-420); RED BLOOD COUNT 4.39 X10e (3.90-5.30); RED CELL DISTRIBUTION WIDTH 13.7 % (11.0-15.5); WHITE BLOOD COUNT 5.2 X10e3 (4.0-10.5)
[2017-01-22 04:24] LABS: DIFF IND NO
[2017-01-22 04:55] LABS: BILIRUBIN,TOTAL 0.2 mg/dL (0.2-2.0); CALCIUM SERUM 8.3 mg/dL (8.4-10.2); GLOM FILT RATE Estimated 62.1 mL/min (>60); POTASSIUM 3.2 mmol/L (3.5-5.1); PROTEIN TOTAL SERUM 5.7 g/dL (6.0-8.3)
[2017-01-23 04:09] LABS: MAGNESIUM 1.8 mg/dL (1.6-3.0); POTASSIUM 4.1 mmol/L (3.5-5.1)
[2017-01-24 03:51] LABS: HEMATOCRIT 36.5 % (35.0-45.0); HEMOGLOBIN 12.3 gm/dL (12.0-16.0); MEAN CELL VOLUME 87.9 FL (83-96); MEAN CORPUSCULAR HEMOGLOBIN 29.5 PG (28-34); MEAN CORPUSCULAR HGB CONC 33.6 g/dL (30-36); MEAN PLATELET VOLUME 9.7 FL (6.5-11.5); RED BLOOD COUNT 4.15 X10e (3.90-5.30); RED CELL DISTRIBUTION WIDTH 14.1 % (11.0-15.5); WHITE BLOOD COUNT 4.8 X10e3 (4.0-10.5)
[2017-01-24 04:18] LABS: ALBUMIN SERUM 3.1 g/dL (3.5-5.0); ALKALINE PHOSPHATASE 60 U/L (32-92); ALT (SGPT) 9 U/L (10-40); AST (SGOT) 15 U/L (10-42); BILIRUBIN,TOTAL <0.1 mg/dL (0.2-2.0); BLOOD UREA NITROGEN 14 mg/dL (9-23); BUN/CREATININE RATIO 10.76; CALCIUM SERUM 8.7 mg/dL (8.4-10.2); CARBON DIOXIDE 27 mmol/L (22-31); CHLORIDE 109 mmol/L (100-111); CREATININE SERUM 1.3 mg/dL (0.6-1.4); GLOM FILT RATE Estimated 45.2 mL/min (>60); GLUCOSE FASTING 109 mg/dL (70-110); MAGNESIUM 2.1 mg/dL (1.6-3.0); POTASSIUM 4.9 mmol/L (3.5-5.1); PROTEIN TOTAL SERUM 5.7 g/dL (6.0-8.3); SODIUM 144 mmol/L (135-145)
== END 2017-01-25 01:22 | DRG 375 ==
LOC: CED 11:27 → CEDOF 14:50 → C4C 14:50 → CED 14:50 → CEDOF 15:23 → C4C 17:24
PROVIDERS: Emergency Medicine; Internal Medicine
PROC: 0DB68ZX Excision of Stomach, Via Natural or Artificial Opening Endoscopic, Diagnostic (ICD-10-PCS; principal; 2017-01-21 10:09)
PROC: 0DHA7UZ Insertion of Feeding Device into Jejunum, Via Natural or Artificial Opening (ICD-10-PCS; 2017-01-21 10:09)
DX: C16.9 Malignant neoplasm of stomach, unspecified (principal); K31.1 Adult hypertrophic pyloric stenosis; Q61.3 Polycystic kidney, unspecified; E11.649 Type 2 diabetes mellitus with hypoglycemia without coma; R13.10 Dysphagia, unspecified; E78.5 Hyperlipidemia, unspecified; F41.9 Anxiety disorder, unspecified; F32.9 Major depressive disorder, single episode, unspecified; F17.200 Nicotine dependence, unspecified, uncomplicated; I10 Essential (primary) hypertension; K76.89 Other specified diseases of liver; E03.9 Hypothyroidism, unspecified; R63.4 Abnormal weight loss; Z68.26 Body mass index [BMI] 26.0-26.9, adult; Z90.49 Acquired absence of other specified parts of digestive tract; Z88.0 Allergy status to penicillin; Z88.2 Allergy status to sulfonamides; Z88.8 Allergy status to other drugs, medicaments and biological substances; Z80.1 Family history of malignant neoplasm of trachea, bronchus and lung; Z85.828 Personal history of other malignant neoplasm of skin
CPT/HCPCS: 36415; 71250; 76000; 80048; 80053; 80076; 82533; 82607; 82728; 82947; 83540; 83550; 83690; 83735; 84132; 85025; 85027; 88305; 88312; 88313; 96361; 96374; 96376; 99285; C9113; J0833; J1650; J2250; J2270; J2405; J2550; J2765; J3475